=== PATIENT | male | born 1985 | race Caucasian/White ===

== ENCOUNTER 2018-03-28 13:32 | Emergency (ER) | payer MEDICAID, SELFPAY ==
[2018-03-28 13:34] VITALS: BP 135/76; PULSE 112; RESP 20; TEMP 37; O2SAT 100; BMI 20.3
--- NOTE | 2018-03-28 13:52 | NURSING ---
NO OLD EKGS
--- NOTE | 2018-03-28 14:05 | EKG12_ITS ---
Test Reason : Blood Pressure : / mmHG Vent. Rate : 089 BPM Atrial Rate : 089 BPM P-R Int : 128 ms QRS Dur : 082 ms QT Int : 368 ms P-R-T Axes : 077 060 057 degrees QTc Int : 447 ms Normal sinus rhythm Right atrial enlargement Borderline ECG Confirmed by DEVORA GRIMES, ALEKS ([id number]), editorial writer GIUSEPPE MENDEZ ([id number]) on 03/31/2018 9:50:22 AM Referred By: MEGAN Confirmed By:ALEKS LOZOYA MD
[2018-03-28] MEDS: 0.9% Normal Saline 1,000 ML 1000 ML IV (14:17)
[2018-03-28 14:29] LABS: Basophil# 0.03 X10^3/uL; Basophil% 0.3 % (0-1); Eosinophil# 0.01 X10^3/uL; Eosinophils% 0.1 % (0-5); Hematocrit 43.9 % (40-54); Lymphocyte % 7.5 % (19-41); Mean Corp Hgb Conc 34.2 g/gl (32-36); Mean Corpuscular Volume 96.5 fL (80-94); Mean Platelet Vol. 9.9 fl (6.2-12.0); Monocyte# 0.65 X10^3/uL; Monocyte% 6.9 % (0-10); Neutrophil # 7.97 X10^3/uL (2.7-7.7); Neutrophil % 85.2 % (47-70); Platelet Count 182 K/mm3 (150-450); RBC Distribution Width CV 11.8 % (11.6-14.6); RBC Distribution Width SD 41.5 fl (35.1-43.9); Red Blood Count 4.55 M/mm3 (4.6-6.2); White Blood Count 9.4 K/mm3 (4.4-11.0)
[2018-03-28 14:30] LABS: POSITIVE COUNT NO; POSITIVE DIFFERENTIAL NO; POSITIVE MORPHOLOGY NO
[2018-03-28 14:40] LABS: Anion Gap 6 (5-15); BUN 6 mg/dL (7-18); BUN/Creat Ratio 9.2 RATIO (10-20); Calcium,Total 9.5 mg/dL (8.5-10.1); Chloride 100 mmol/L (98-107); Creatinine, Serum 0.65 mg/dL (0.70-1.30); EST Glomerular Filtration Rate 148 mL/min (>60); Est Glom Filt Rate - Afr Amer 179 mL/min (>60); Estimated Creatinine Clearance 145.86 ml/min; Glucose 168 mg/dL (74-106); Potassium 3.7 mmol/L (3.5-5.1); Sodium Level 136 mmol/L (136-145)
--- NOTE | 2018-03-28 15:15 | ED.DCSUM_ITS ---
- ER Visit Summary Date of Service: 03/28/18 Chief Complaint: Feel weird and shaky History of Present Illness: The patient is a 32 M with no primary care physician. Reports that 8:00 this morning he woke up feeling shaky and has chest tightness. He states that this is a constant discomfort. 6 out of 10 severity. Son change with exertion or deep breaths. He denies any fever. No cough, abdominal pain, nausea, vomiting, diarrhea, dysuria, frequency, headache , or other complaints. Patient does report that he drinks daily. However, he states that he drinks 1- 2 beers per day. He states that he drank heavier over the weekend. He states that he had 5 beers yesterday. He has never had any symptoms of alcohol withdrawal. He does however report that he has a history of anxiety. Physical Examination: Vitals: Stable. Afebrile. General: Well-nourished and well-developed. Head: Normocephalic atraumatic. Neck: Supple, no lymphadenopathy. No JVD. Nontender. Cardiovascular: Regular rate and rhythm. No murmurs. Respiratory: No respiratory distress. Clear to auscultation bilaterally. Abdominal: Soft, nontender, nondistended, normal bowel sounds. No guarding, rebound, or peritoneal signs. Back: Nontender. Extremities: Nontender, no edema. Skin: Normal color, no rash. Neurologic: Alert and oriented ?3. Cranial nerves II through XII are intact. Normal strength and sensation. Psych: Normal affect. Test Results: EKG is sinus at [address] changes. CBC is more for segment neutrophils 85 monocytes of 8. Chem-7 is more for glucose 160, BUN 6, creatinine 0.65. Emergency Department Course and Treatment: Patient refused any medications for anxiety. He was given a liter of normal saline. He is resting comfortably and feels improved. Treatment Plan: I had a prolonged discussion with the patient that at this time I do not think that this is alcohol withdrawal given the amount that he drinks. Regardless he states that he does not want to stop drinking. He is not tachycardic or hypertensive. I feel that he is a suitable candidate for further outpatient evaluation. He will be discharged instructions to [facility] in 1-2 days if not improving. Return to the emergency department for any worsening symptoms. Disposition: To home in improved and stable condition. Impression: 1. Anxiety. This note was generated with [employer] dictation software. It may contain incorrect words, spelling, and punctuation that were not noted in review of the chart prior to signing ED Disposition - Plan for ED Patient: Disposition: Home or Assisted Living Chief Complaint: General Illness Instructions: ED Stress React Referrals: Christiana Shabazz [NON-STAFF] - 1-2 Days if not improving
[2018-03-28 15:23] VITALS: BP 125/75; PULSE 95; RESP 14; O2SAT 98
== END 2018-03-28 15:27 | disposition home or self-care (01) ==
PROVIDERS: Emergency Provider Emergency Medicine
DX: R41.9 Unspecified symptoms and signs involving cognitive functions and awareness (principal)
CPT/HCPCS: 80048; 85025; 93005; 99284; J7030

== ENCOUNTER 2021-03-09 08:37 | Emergency (ER) | payer MEDICAID, SELFPAY ==
[2021-03-09 08:38] VITALS: BP 145/110; PULSE 109; RESP 22; TEMP 36.1; O2SAT 98; BMI 20.2
--- NOTE | 2021-03-09 09:05 | EX.ED.DYSGE1 ---
HPI History of Present Illness Chief Complaint: Anxiety Informant: patient and parent Onset/Context/Timing Onset: Month(s) Context: Gradual Onset Timing: Continuous Quality: Anxious, shaky Location: Generalized Worsened by: Nothing Relieved by: Drinking alcohol Narrative Narrative: Patient presents with increasing anxiety over the past several months. Patient states he feels anxious and shaking all over. Patient states he has been drinking alcohol to self medicate. Patient states he drinks 10-20 beers per day. Patient states he has not seen a counselor or psychiatrist for his anxiety. Patient also noted some bruising over his arms and legs. Patient states this is getting worse. Patient denies any trauma or injuries to cause the bruising. [facility] Medical History Alcohol abuse Anxiety Depression Home Medications hydroxyzine pamoate 25 mg PO TID PRN PRN #3 capsule 03/09/21 [Rx Last Taken Unknown] Allergy/AdvReac Type Severity Reaction Status Date / Time No Known Allergies Allergy Verified 06/29/13 14:19 no surgical history Social History (Updated 03/09/21 @ 09:[address] Braulio Green DO) Smoking Status: Never smoker alcohol intake: current alcohol intake frequency: 3 or more drinks per day Alcohol type: beer ROS ROS ED Constitutional Constitutional ED: Denies chills or fever(s) Eyes Eyes: Reports blurry vision; Denies diplopia ENT ENT ED: Denies rhinorrhea or sore throat Cardiovascular Cardiovascular: Denies chest pain or palpitations Respiratory/Chest Respiratory/Chest: Denies cough or dyspnea Gastrointestinal Gastrointestinal: Reports nausea and vomiting Genitourinary Genitourinary ED: Denies dysuria or hematuria Musculoskeletal Musculoskeletal: Denies back pain or neck pain Integumentary Denies abscess or rash Neurologic Neurologic: Denies headache(s) or weakness Psychiatric Psychiatric: Reports anxiety and depression; Denies suicidal ideation or suicidal thoughts Hematologic/Lymphatic Hematologic/Lymphatic: Reports easy bruising Allergic/Immunologic Allergic/Immunologic ED: Denies mouth swelling or urticaria EXAM Physical Exam Const Vital Signs: 03/09/21 08:38 03/09/21 10:36 Temperature 97.0 F L Temperature Source Temporal Pulse Rate 109 H 96 Respiratory Rate 22 H 18 Blood Pressure 145/110 H 160/109 H Blood Pressure Mean 121 126 Pulse Ox 98 99 Oxygen Delivery Method Room Air Room Air Positive well nourished and well developed General Appearance ED: well developed HEENT Reports moist mucous membranes Neck supple and no JVD Resp normal respiratory effort and clear to auscultation bilaterally Cardio regular rate, regular rhythm and no murmurs GI normal to inspection, nondistended, normoactive bowel sounds and non-tender Palpation: soft Extremity normal to inspection General Extremety ED: Negative for edema or tenderness General Extremity: Negative for edema Neuro oriented x3, CN's II-XII intact bilaterally and no sensory deficits noted Sensorium / Orientation: alert Motor Exam: strength 5/5 throughout Psych mental status grossly normal, denies homicidal ideation and denies suicidal ideation Appearance: grossly normal Activity / Motor Behavior: appropriate eye contact Speech: normal speech Mood & Affect: anxious Skin no rashes or lesions noted MDM MDM MDM Narrative Medical decision making narrative: Patient was given a dose of Vistaril here. CBC shows a mild thrombocytopenia of 96. Comprehensive metabolic profile shows a mild hypokalemia 3.0. AST was 257, ALT was 133, and alk phos is 134. Serum alcohol level was 66. Urine tox screen was positive for cannabinoids. Patient is feeling somewhat better on reevaluation. Case will be discussed with crisis for outpatient referral for alcohol abuse and counseling for anxiety and depression. I do not feel the patient needs to be placed in a psychiatric facility. Patient does not want to be admitted for alcohol detox. Patient was instructed to follow-up with crisis tomorrow at 4 PM. Patient understood and was agreeable with the plan. Patient was given a prescription for Vistaril. Patient was instructed to avoid drinking alcohol. Lab Data Attestation: I reviewed the patient's lab results. Labs: Laboratory Results - last 24 hr 03/09/21 03/09/21 03/09/21 09:05 09:05 09:05 WBC 6.7 RBC 4.22 L Hgb 14.4 Hct 41.1 MCV 97.4 H MCH 34.1 H MCHC 35.0 RDW Std Deviation 43.6 RDW Coeff of [place]ira 12.1 Plt Count 96 L MPV 10.8 Immature Gran % (Auto) 0.100 Neut % (Auto) 69.9 Lymph % (Auto) 15.9 L [place] % (Auto) 11.9 H Eos % (Auto) 1.0 Baso % (Auto) 1.2 H Absolute Neuts (auto) 4.7 Absolute Lymphs (auto) 1.07 Nucleated RBC % 0 Platelet Estimate MOD DEC Sodium 134 L Potassium 3.0 L Chloride 96 L Carbon Dioxide 25.0 Anion Gap 13 BUN 3 L Creatinine 0.59 L Estim Creat Clear Calc 155.73 Est GFR (MDRD) Af Amer 198 Est GFR (MDRD) Non-Af 164 BUN/Creatinine Ratio 5.1 L Glucose 114 H Calcium 8.8 Total Bilirubin 0.80 AST 257 H ALT 133 H Alkaline Phosphatase 134 H Total Protein 7.3 Albumin 3.8 Globulin 3.5 Albumin/Globulin Ratio 1.1 Urine Opiates Screen Urine Methadone Screen Ur Barbiturates Screen Ur Phencyclidine Scrn Ur Amphetamines Screen U Methamphetamin-MDMA U Benzodiazepines Scrn Urine Cocaine Screen U Cannabinoids Screen Ur Drug Screen Comment Ethyl Alcohol 66.0 03/09/21 09:20 WBC RBC Hgb Hct MCV MCH MCHC RDW Std Deviation RDW Coeff of [place] Plt Count MPV Immature Gran % (Auto) Neut % (Auto) Lymph % (Auto) [place] % (Auto) Eos % (Auto) Baso % (Auto) Absolute Neuts (auto) Absolute Lymphs (auto) Nucleated RBC % Platelet Estimate Sodium Potassium Chloride Carbon Dioxide Anion Gap BUN Creatinine Estim Creat Clear Calc Est GFR (MDRD) Af Amer Est GFR (MDRD) Non-Af BUN/Creatinine Ratio Glucose Calcium Total Bilirubin AST ALT Alkaline Phosphatase Total Protein Albumin Globulin Albumin/Globulin Ratio Urine Opiates Screen NEGATIVE Urine Methadone Screen NEGATIVE Ur Barbiturates Screen NEGATIVE Ur Phencyclidine Scrn NEGATIVE Ur Amphetamines Screen NEGATIVE U Methamphetamin-MDMA NEGATIVE U Benzodiazepines Scrn NEGATIVE Urine Cocaine Screen NEGATIVE U Cannabinoids Screen POSITIVE H Ur Drug Screen Comment Ethyl Alcohol Discharge Plan Triage Chief Complaint: Anxiety ED Provider: Braulio Green Dx/Rx/DC Orders Clinical Impression: Anxiety, Alcohol abuse Instructions: ED Anxiety Reaction, ED Depression, ED Alcohol Abuse Prescriptions: New hydroxyzine pamoate [hydroxyzine pamoate] 25 MG capsule 25 mg PO TID PRN PRN (Reason: Anxiety) Qty: 3 RF: 0 Primary Care Provider: Care Physician,No Primary Referrals: Counseling,Center [GROUP OF PHYSICIANS] - 1 Day (Follow-up tomorrow at 4 PM) Care Physician,No Primary [Primary Care Provider] - Activity Restrictions/Additional Instructions: Follow-up with crisis counseling center tomorrow at 4 PM Disposition Disposition: Home, Self Care
[2021-03-09] MEDS: hydrOXYzine PAM 25 MG Capsule PO (09:22)
[2021-03-09 09:28] LABS: Absolute Lymphocyte Count 1.07 X10^3/uL (0.83-4.51); Absolute Neutrophil Count 4.7 X10^3/uL (2.0-7.7); Basophil# 0.08 X10^3/uL; Basophil% 1.2 % (0-1); Eosinophil# 0.07 X10^3/uL; Hematocrit 41.1 % (40-54); Hemoglobin 14.4 g/dL (13.0-16.5); Lymphocyte # 1.07 X10^3/ul (0.83-4.51); Lymphocyte % 15.9 % (19-41); Mean Corpuscular Hgb 34.1 pg (27.0-32.0); Mean Corpuscular Volume 97.4 fL (80-94); Mean Platelet Vol. 10.8 fl (6.2-12.0); Monocyte% 11.9 % (0-10); NRBC Flagged by Analyzer 0 % (0-5); Neutrophil # 4.68 X10^3/uL (2.7-7.7); Neutrophil % 69.9 % (47-70); POSITIVE COUNT YES; Platelet Count 96 K/mm3 (150-450); RBC Distribution Width CV 12.1 % (11.6-14.6); RBC Distribution Width SD 43.6 fl (35.1-43.9); Red Blood Count 4.22 M/mm3 (4.6-6.2); White Blood Count 6.7 K/mm3 (4.4-11.0)
[2021-03-09 09:29] LABS: Differential Indicated SCAN CRITERIA MET
[2021-03-09 09:43] LABS: ALB/GLOB Ratio 1.1 RATIO (0.9-2.4); AST(SGOT) 257 U/L (15-37); Alanine Aminotransfer ALT/SGPT 133 U/L (16-61); Albumin, Serum 3.8 g/dL (3.2-5.0); Alkaline Phosphatase 134 U/L (45-117); Anion Gap 13 (5-15); BUN 3 mg/dL (7-18); BUN/Creat Ratio 5.1 RATIO (10-20); Calcium,Total 8.8 mg/dL (8.5-10.1); Chloride 96 mmol/L (98-107); Creatinine, Serum 0.59 mg/dL (0.70-1.30); EST Glomerular Filtration Rate 164 mL/min (>60); Est Glom Filt Rate - Afr Amer 198 mL/min (>60); Estimated Creatinine Clearance 155.73 ml/min; Globulin 3.5 g/dL (2.2-4.2); Glucose 114 mg/dL (74-106); Protein, Total 7.3 g/dL (6.4-8.2); Sodium Level 134 mmol/L (136-145)
[2021-03-09 09:52] LABS: Amphetamine Urine VISTA NEGATIVE (<1000 ng/mL); Barbiturate Urine VISTA NEGATIVE (< 200 ng/mL); Benzodiazepine Urine VISTA NEGATIVE (< 200 ng/mL); Cocaine Urine VISTA NEGATIVE (< 300 ng/mL); Ecstacy Urine VISTA NEGATIVE (< 500 ng/mL); Methadone Urine VISTA NEGATIVE (< 300 ng/mL); PCP Urine VISTA NEGATIVE (< 25 ng/mL); THC Urine VISTA POSITIVE (< 50 ng/mL); Vista UDS pH Range 6
[2021-03-09 09:57] LABS: Platelet Estimate MOD DEC (ADEQ)
[2021-03-09] MEDS: Potassium Chloride Oral Tablet 20 MEQ 40 MEQ PO (10:33)
[2021-03-09 10:36] VITALS: BP 160/109; PULSE 96; RESP 18; O2SAT 99
[2021-03-09 11:02] VITALS: BP 174/77; PULSE 96; RESP 16; O2SAT 99
== END 2021-03-09 11:03 | disposition home or self-care (01) ==
PROVIDERS: Emergency Provider Emergency Medicine
DX: F41.9 Anxiety disorder, unspecified (principal); F10.10 Alcohol abuse, uncomplicated; Y90.3 Blood alcohol level of 60-79 mg/100 ml
CPT/HCPCS: 80053; 80307; 82077; 85025; 99284; A4216

== ENCOUNTER → 2021-04-08 16:33 | Outpatient (CLI) | payer MEDICAID, SELFPAY ==
[2021-03-09 08:38] VITALS: BMI 20.2
[2021-04-08 17:06] LABS: Absolute Lymphocyte Count 0.69 X10^3/uL (0.83-4.51); Basophil# 0.04 X10^3/uL; Basophil% 0.3 % (0-1); Eosinophil# 0.04 X10^3/uL; Eosinophils% 0.3 % (0-5); Hematocrit 41.3 % (40-54); Hemoglobin 14.4 g/dL (13.0-16.5); Lymphocyte # 0.69 X10^3/ul (0.83-4.51); Lymphocyte % 5.3 % (19-41); Mean Corp Hgb Conc 34.9 g/dL (32-36); Mean Corpuscular Hgb 34.5 pg (27.0-32.0); Mean Platelet Vol. 11.5 fl (6.2-12.0); Monocyte# 1.25 X10^3/uL; Monocyte% 9.5 % (0-10); NRBC Flagged by Analyzer 0 % (0-5); Neutrophil # 11.02 X10^3/uL (2.7-7.7); POSITIVE COUNT YES; Platelet Count 102 K/mm3 (150-450); RBC Distribution Width CV 11.7 % (11.6-14.6); RBC Distribution Width SD 42.6 fl (35.1-43.9); Red Blood Count 4.17 M/mm3 (4.6-6.2); White Blood Count 13.1 K/mm3 (4.4-11.0)
[2021-04-08 17:11] LABS: Differential Indicated SCAN CRITERIA MET
[2021-04-08 17:47] LABS: Anisocytosis RARE; Macrocytosis RARE; Platelet Estimate SLT DEC (ADEQ); Platelet Morphology LARGE; Red Cell Morphology N CHROM NORMAL (NORM C&C)
[2021-04-08 18:06] LABS: AST(SGOT) 116 U/L (15-37); Alanine Aminotransfer ALT/SGPT 77 U/L (16-61); Albumin, Serum 4.2 g/dL (3.2-5.0); Alkaline Phosphatase 123 U/L (45-117); Anion Gap 11 (5-15); BUN 6 mg/dL (7-18); BUN/Creat Ratio 6.9 RATIO (10-20); Calcium,Total 9.7 mg/dL (8.5-10.1); Chloride 92 mmol/L (98-107); Creatinine, Serum 0.88 mg/dL (0.70-1.30); EST Glomerular Filtration Rate 104 mL/min (>60); Est Glom Filt Rate - Afr Amer 126 mL/min (>60); Glucose 129 mg/dL (74-106); Potassium 3.7 mmol/L (3.5-5.1); Protein, Total 8.2 g/dL (6.4-8.2); Sodium Level 127 mmol/L (136-145)
== END ==
LOC: LAB.FUTURE 16:38 → LAB 16:39
DX: F41.8 Other specified anxiety disorders (principal); F10.10 Alcohol abuse, uncomplicated; F51.04 Psychophysiologic insomnia
CPT/HCPCS: 36415; 80053; 85025

== ENCOUNTER → 2021-05-02 14:57 | Outpatient (CLI) | payer MEDICAID, SELFPAY ==
[2021-05-02 16:49] LABS: ALB/GLOB Ratio 1.1 RATIO (0.9-2.4); AST(SGOT) 57 U/L (15-37); Alanine Aminotransfer ALT/SGPT 75 U/L (16-61); Albumin, Serum 3.9 g/dL (3.2-5.0); Alkaline Phosphatase 98 U/L (45-117); Anion Gap 7 (5-15); BUN 10 mg/dL (7-18); BUN/Creat Ratio 20.6 RATIO (10-20); Calcium,Total 8.9 mg/dL (8.5-10.1); Chloride 99 mmol/L (98-107); Creatinine, Serum 0.49 mg/dL (0.70-1.30); EST Glomerular Filtration Rate 205 mL/min (>60); Est Glom Filt Rate - Afr Amer 248 mL/min (>60); Globulin 3.4 g/dL (2.2-4.2); Glucose 87 mg/dL (74-106); Potassium 3.3 mmol/L (3.5-5.1); Protein, Total 7.3 g/dL (6.4-8.2); Sodium Level 134 mmol/L (136-145)
== END ==
PROVIDERS: Visit Provider Family Medicine
DX: F10.10 Alcohol abuse, uncomplicated (principal)
CPT/HCPCS: 36415; 80053

== ENCOUNTER → 2021-06-20 14:11 | Outpatient (CLI) | payer MEDICAID, SELFPAY ==
[2021-06-20 16:03] LABS: Potassium 4.1 mmol/L (3.5-5.1)
== END ==
PROVIDERS: Referring Provider Nurse Practitioner Adult Health; Visit Provider Nurse Practitioner Adult Health
DX: E87.6 Hypokalemia (principal)
CPT/HCPCS: 36415; 84132

== ENCOUNTER 2021-10-20 14:03 | Outpatient (CLI) | payer MEDICAID, SELFPAY ==
[2021-10-20 15:40] LABS: AST(SGOT) 90 U/L (15-37); Alanine Aminotransfer ALT/SGPT 62 U/L (16-61); Albumin, Serum 4.1 g/dL (3.2-5.0); Alkaline Phosphatase 170 U/L (45-117); Bilirubin, Direct 0.51 mg/dL (0.00-0.30); Protein, Total 8.1 g/dL (6.4-8.2); T4 Free Direct 0.82 ng/dL (0.76-1.46); Thyroid Stim Hormone (TSH) 4.69 uIU/mL (0.358-3.74)
== END 2021-10-20 23:59 | disposition home or self-care (01) ==
LOC: LAB 14:04
PROVIDERS: Visit Provider Nurse Practitioner Adult Health
DX: F41.9 Anxiety disorder, unspecified (principal); R94.5 Abnormal results of liver function studies; F51.04 Psychophysiologic insomnia
CPT/HCPCS: 36415; 80076; 84439; 84443

== ENCOUNTER 2021-11-06 07:49 | Outpatient (CLI) | payer MEDICAID, SELFPAY ==
--- NOTE | 2021-11-06 07:51 | US_ITS ---
STUDY: ABDOMINAL ULTRASOUND REASON FOR EXAM: Male, 36 years old. ALCOHOL ABUSE TECHNIQUE: Transabdominal ultrasound was performed with real-time and static ocbb scale imaging. TECHNICAL QUALITY: Adequate. COMPARISON: None. FINDINGS: Liver: The liver is enlarged and measures 18.4 cm. There is increased echogenicity consistent with fatty infiltration. The bile ducts are within normal limits. There is hepatic color flow. The direction of portal flow is hepatopetal. There is no demonstrated mass lesion. Gallbladder: Normal distended gallbladder. The gallbladder wall measures 3.7 mm. There is a negative sonographic Schmidt''s sign. There is no pericholecystic fluid. There are multiple echogenic structures within the gallbladder, consistent with multiple small gallstones. Common Bile Duct (C.B.D.): The common bile duct measures 3.7 mm. Pancreas: Normal size of the head, body and tail of the pancreas. There is normal echogenicity of the pancreas. There is no demonstrated pancreatic mass or cyst. Spleen: Normal size of the spleen. The spleen measures 8.2 cm x 3.7 cm x 3.3 cm. Right Kidney: Normal size of the right kidney. The right kidney measures 11 cm x 6.1 cm x 4 cm. Normal renal cortex. The right cortex measures 1.5 cm. There is no demonstrated renal mass or cyst. There is no right hydronephrosis. Left Kidney: Normal size of the left kidney. The left kidney measures 9.2 cm x 4.9 cm x 5.3 cm. Normal renal cortex. The left cortex measures 1.6 cm. There is no demonstrated renal mass or cyst. There is no left hydronephrosis. Aorta: Unremarkable I.V.C.: The IVC is patent. There is no ascites. US/Abdomen Complete IMPRESSION: Mild hepatomegaly and fatty infiltration of the liver. Multiple small gallstones. Electronically Signed: Dharmesh Alaniz MD at 15:40 EST ,
[2021-11-07 13:42] LABS: Thyroid Peroxidase AB 19 IU/mL (0-34)
== END 2021-11-06 23:59 | disposition home or self-care (01) ==
PROVIDERS: Referring Provider Nurse Practitioner Adult Health; Visit Provider Nurse Practitioner Adult Health
DX: E03.9 Hypothyroidism, unspecified (principal); F10.10 Alcohol abuse, uncomplicated
CPT/HCPCS: 36415; 76700; 86376

== ENCOUNTER 2021-12-10 10:56 | Outpatient (CLI) | payer MEDICAID, SELFPAY ==
[2021-12-10 14:08] LABS: Hepatitis B Surface Antigen Non-Reactive (Nonreactive)
[2021-12-12 18:07] LABS: Hepatitis B Core Ab Total Negative (Negative)
[2021-12-12 21:12] LABS: Hepatitis A AB, Total Negative (Negative)
== END 2021-12-10 23:59 | disposition home or self-care (01) ==
LOC: LAB 10:57
PROVIDERS: Referring Provider Nurse Practitioner Adult Health; Visit Provider Nurse Practitioner Adult Health
DX: R94.5 Abnormal results of liver function studies (principal)
CPT/HCPCS: 36415; 86704; 86708; 87340; 87521

== ENCOUNTER 2021-12-15 11:23 | Outpatient (CLI) | payer MEDICAID, SELFPAY ==
[2021-12-15 12:22] LABS: Prothrombin Time (Protime)PT. 13.3 SECONDS (11.7-14.9)
[2021-12-15 12:31] LABS: Erythrocyte Sedimentation Rate 3 mm/hr (0-20)
[2021-12-15 12:33] LABS: Absolute Lymphocyte Count 1.42 X10^3/uL (0.83-4.51); Absolute Neutrophil Count 6.9 X10^3/uL (2.0-7.7); Basophil# 0.06 X10^3/uL; Basophil% 0.6 % (0-1); Eosinophil# 0.08 X10^3/uL; Eosinophils% 0.8 % (0-5); Hematocrit 40.6 % (40-54); Hemoglobin 13.7 g/dL (13.0-16.5); Lymphocyte # 1.42 X10^3/ul (0.83-4.51); Lymphocyte % 14.7 % (19-41); Mean Corp Hgb Conc 33.7 g/dL (32-36); Mean Corpuscular Hgb 33.7 pg (27.0-32.0); Mean Corpuscular Volume 99.8 fL (80-94); Mean Platelet Vol. 10.2 fl (6.2-12.0); Monocyte% 12.4 % (0-10); NRBC Flagged by Analyzer 0 % (0-5); Neutrophil # 6.85 X10^3/uL (2.7-7.7); Neutrophil % 71.1 % (47-70); Platelet Count 225 K/mm3 (150-450); RBC Distribution Width CV 11.7 % (11.6-14.6); RBC Distribution Width SD 42.4 fl (35.1-43.9); Red Blood Count 4.07 M/mm3 (4.6-6.2); White Blood Count 9.7 K/mm3 (4.4-11.0)
[2021-12-15 13:15] LABS: ALB/GLOB Ratio 1.1 RATIO (0.9-2.4); AST(SGOT) 87 U/L (15-37); Alanine Aminotransfer ALT/SGPT 70 U/L (16-61); Albumin, Serum 4.1 g/dL (3.2-5.0); Alkaline Phosphatase 149 U/L (45-117); Anion Gap 9 (5-15); BUN 8 mg/dL (7-18); BUN/Creat Ratio 12.7 RATIO (10-20); Bilirubin, Direct 0.26 mg/dL (0.00-0.30); CRP < 2.90 mg/L (0.0-3.0); Calcium,Total 9.1 mg/dL (8.5-10.1); Chloride 102 mmol/L (98-107); Creatinine, Serum 0.63 mg/dL (0.70-1.30); EST Glomerular Filtration Rate 152 mL/min (>60); Est Glom Filt Rate - Afr Amer 184 mL/min (>60); Ferritin 252 ng/mL (26-388); Globulin 3.8 g/dL (2.2-4.2); Glucose 97 mg/dL (74-106); LDH 188 U/L (87-241); Potassium 3.6 mmol/L (3.5-5.1); Protein, Total 7.9 g/dL (6.4-8.2); Sodium Level 134 mmol/L (136-145)
[2021-12-15 13:42] LABS: HIV - WCH Non-Reactive (Nonreactive)
[2021-12-16 15:08] LABS: Anti-Centromere B Ab <0.2 AI (0.0-0.9); Anti-Chromatin <0.2 AI (0.0-0.9); Anti-Jo <0.2 AI (0.0-0.9); Anti-Scleroderma-70 AB <0.2 AI (0.0-0.9); RNP Ab <0.2 AI (0.0-0.9); SJOGREN'S Anti-SS-A test < 0.2 AI (0.0-0.9); SJOGREN'S Anti-SS-B test < 0.2 AI (0.0-0.9); Smith Ab <0.2 AI (0.0-0.9)
[2021-12-16 17:40] LABS: Anti-Mitochondrial AB <20.0 Units (0.0-20.0); Anti-dsDNA Ab <1 IU/mL (0-9)
[2021-12-24 04:07] LABS: Angiotensin Convert Enzyme 64 U/L (14-82); Ceruloplasmin 20.3 mg/dL (16.0-31.0); Cytoplasmic Ab (C-ANCA) <1:20 titer (Neg:<1:20); Immunoglobulin A 482 mg/dL (90-386); Immunoglobulin E 2464 IU/mL (6-495); Immunoglobulin G 769 mg/dL (603-1613); Immunoglobulin M 49 mg/dL (20-172)
[2021-12-24 10:44] LABS: Anti-Smooth Muscle ABS 4 Units (0-19); Copper, Serum or Plasma 83 ug/dL (69-132); Perinuclear Ab (P-ANCA) <1:20 titer (Neg:<1:20)
== END 2021-12-15 23:59 | disposition home or self-care (01) ==
LOC: LAB 11:24
PROVIDERS: Referring Provider Nurse Practitioner Adult Health; Visit Provider Nurse Practitioner Adult Health
DX: F10.10 Alcohol abuse, uncomplicated (principal); K76.0 Fatty (change of) liver, not elsewhere classified
CPT/HCPCS: 36415; 80053; 82140; 82164; 82248; 82390; 82525; 82728; 82784; 82785; 83036; 83516; 83615; 85025; 85610; 85652; 86140; 86225; 86235; 86256; 86703

== ENCOUNTER → 2021-12-26 | Outpatient (CLI) | payer MEDICAID, SELFPAY ==
--- NOTE | 2021-12-26 07:24 | US_ITS ---
STUDY: ABDOMINAL ULTRASOUND - ELASTOGRAPHY REASON FOR VISIT: Male, 36 years old. Fatty infiltration of the liver. TECHNIQUE: Liver stiffness measurements were obtained on a Fingerprint RS 85 ultrasound machine using a CA 1-7 probe following the SRU guidelines. 3 measurements were obtained using a 2-D-SWE method. The IQR/M was 16% suggesting a quality data set. TECHNICAL QUALITY: Adequate. COMPARISON: Comparison is made with prior examination dated 11/06/2021 FINDINGS: Liver: Fatty infiltration of the liver. Median liver stiffness measured 12.5 kPa. US/Elastography Parenchyma/Organ IMPRESSION: Liver stiffness measures 12.5 kPa compatible with F3-F4 (Moderate to severe liver fibrosis) Metavir score. Electronically Signed: Dharmesh Alaniz MD at 10:01 EDT ,
== END | disposition home or self-care (01) ==
LOC: US 07:23
PROVIDERS: Referring Provider Nurse Practitioner Adult Health; Visit Provider Nurse Practitioner Adult Health
DX: K76.0 Fatty (change of) liver, not elsewhere classified (principal)
CPT/HCPCS: 76981

== ENCOUNTER 2022-10-25 18:00 | Emergency (ER) | payer MEDICAID, SELFPAY ==
[2022-10-25 18:00] VITALS: BP 127/95; PULSE 92; RESP 14; TEMP 36.8; O2SAT 97; BMI 19.8
--- NOTE | 2022-10-25 18:58 | EDS_ITS ---
HPI <AURELIANO Santiago - Last Filed: 10/25/22 19:03> History of Present Illness Chief Complaint: Laceration Narrative Narrative: 37-year-old male with history of insomnia presents the emergency department with a laceration to the left eyebrow. Patient states he was walking, struck his face against a corner of a wall after losing his balance. Patient felt blood and he called his parents to bring him here. Patient did have 3-4 alcoholic drinks did not want to drive. He denies any LOC. He is currently on any blood thinners. He is acting appropriate per his parents. Denies any other injury [facility] <AURELIANO Santiago - Last Filed: 10/25/22 19:03> [facility] Medical History (Updated 10/25/22 @ 19:03 by AURELIANO Santiago) Alcohol abuse Alcoholic fatty liver Anxiety Calculus of gallbladder Cholelithiasis Depression Elevated liver enzymes Fatty liver Fatty liver Hyperthyroidism Home Medications NK 12/19/21 [History Last Taken Unknown] Allergy/AdvReac Type Severity Reaction Status Date / Time trazodone Allergy Intermediate UNK Verified 10/25/22 18:01 Family History Father Thyroid disorder Social History Smoking Status: Never smoker alcohol intake: current alcohol intake frequency: 3 or more drinks per day Alcohol type: beer ROS <AURELIANO Santiago - Last Filed: 10/25/22 19:03> ROS ED ROS Narrative Constitutional: Negative for fever, chills, weight loss, weakness Eyes: Negative for vision loss, vision change, double vision ENT: Negative for any sore throat, ear pain, congestion Cardiovascular: Negative for any chest pain, tightness, palpitations Respiratory: Negative for any cough, sputum production, hemoptysis, dyspnea, dyspnea on exertion, orthopnea Gastrointestinal: Negative for any abdominal pain, nausea, vomiting, diarrhea, constipation, blood in stool, blood in vomit : Negative for any urinary frequency, dysuria, retention, blood in urine Muscle skeletal: Negative for any muscle joint pain, stiffness, myalgias, arthralgias, neck pain, back pain Neurological: Negative for any headache, syncope, numbness or tingling, dizziness Skin: Negative for any rashes, lumps, itching, abrasions. Positive laceration to the left eyebrow Psychiatric: Negative for any depression, anxiety, stress, suicidal ideation, homicidal ideation Hematologic: Negative for any easy bruising, excessive bruising, easy bleeding Allergies: Negative for any eczema, hives, rash EXAM <Rigoberto ClarenceAURELIANO ho - Last Filed: 10/25/22 19:03> Physical Exam Narrative Exam Narrative: Vital signs reviewed. Patient alert on x4 acting appropriate. HEET: Head normocephalic atraumatic, TMs clear bilaterally. Posterior pharynx is clear, moist mucous membranes. Nares clear bilaterally. Pupils are equal round reactive to light. Negative for any hemotympanum, septal hematoma. Neck: Supple with no lymphadenopathy or tenderness. No signs of meningismus, negative jolt sign. Cardiac: Regular rate and rhythm no murmurs gallops or rubs, equal peripheral pulses bilaterally. Respiratory: Lungs clear to auscultation bilaterally. No chest tenderness. Abdomen: Soft, nontender, nondistended. No abdominal bruit or pulsatile masses. No hepatosplenomegaly Extremities: No peripheral edema, no signs of gross trauma or deformity. Active full range of motion of all extremities. Neuro: Cranial nerves II through XII intact, no focal neurological deficits. Skin: Clean dry and intact with no rash, purpura, petechiae, vesicles or pustules. Patient has a 1.5 cm laceration is vertical just above his left eyebrow. Backs/flank: No CVA tenderness, no midline spinal tenderness, no deformity. Psych: Normal mood and affect. No SI, HI or acute psychosis. Const Vital Signs: 10/25/22 18:00 10/25/22 19:17 Temperature 98.3 F Temperature Source Temporal Pulse Rate 92 68 Respiratory Rate 14 15 Blood Pressure 127/95 H 125/76 H Blood Pressure Mean 105 Pulse Ox 97 98 Oxygen Delivery Method Room Air <Dr. Lito Daily DO - Last Filed: 10/25/22 22:20> Physical Exam Const Vital Signs: 10/25/22 18:00 10/25/22 19:17 Temperature 98.3 F Temperature Source Temporal Pulse Rate 92 68 Respiratory Rate 14 15 Blood Pressure 127/95 H 125/76 H Blood Pressure Mean 105 Pulse Ox 97 98 Oxygen Delivery Method Room Air MDM <AURELIANO Santiago - Last Filed: 10/25/22 19:03> [facility] Treatment and Re-Evaluation Narrative: Patient appears well, patient appears nontoxic, vital signs are stable. Patient presents to the emergency department with complaints of a laceration to the left eyebrow after running into a wall. Patient did have 3-4 alcoholic drinks. Patient is acting appropriate. He is with his parents who states that he is acting appropriate. Consider a CT scan of the brain secondary to the alcohol use. I spoke with the patient, the patient's parents, we shared decision making, there is no indication at this time. I did offer to the patient however he declined, patient is alert and oriented acting appropriate. I was able to place 4 simple sutures to the 1.5 cm vertical laceration above the left eyebrow. I used 5-0 Ethilon. Patient tolerated well. Patient was up-to-date on his tetanus vaccination. Patient stable for discharge <Dr. Lito Daily DO - Last Filed: 10/25/22 22:20> [facility] Narrative Medical decision making narrative: interventions / MDM: Differential diagnosis: Facial laceration, head injury, alcohol use Diagnosis considered but do not suspect: N/A My EKG interpretation: N/A Imaging independently reviewed and interpreted by myself: N/A External documents reviewed: N/A Test considered but not ordered:N/A ED course: Attending note: Patient seen and evaluated with od grinder operator. I perform my own [id number] evaluation. I agree with the plan of work-up. Alcohol today walked into the corner of a wall. Laceration forehead. Tetanus unknown. No other injuries. Exam 1.5 cm vertical laceration above the left brow. Clinically sober. No focal deficits. Parents are present patient declines CT scan. Parents will monitor. Last repaired by od grinder operator. Tetanus updated. Discussed wound care and sutures removed in 5 days. He is followed by [facility]. Return precautions. Re-evaluation: stable Disposition discussed with patient/family/significant other: Patient and parents Case discussed with consulting clinician: N/A. Lab Data Attestation: I reviewed the patient's lab results. Procedures <AURELIANO Santiago - Last Filed: 10/25/22 19:03> Lacerations 1.5 cm vertical laceration: Length: 0.59 in Depth: Skin Shape: Linear Prep: Sterile Conditions Laceration repair: Lidocaine Irrigated (ml): 100 Number of Sutures/Julio: 4 Suture Information: Ethilon Comment: Sterile gloves, sterile drapes were used. Discharge Plan Triage Chief Complaint: Laceration ED Midlevel Provider: Rigoberto May ED Provider: Lito Daily Dx/Rx/DC Orders Clinical Impression: Head injury, Face lacerations Instructions: ED Head Injury (Adult), ED Laceration Minimize Scars Prescriptions: No Action NK [facility] - Activity Restrictions/Additional Instructions: Sutures need to be removed in 5 to 7 days. Disposition Disposition: Home, Self Care Discharge Date/Time: 10/25/22 19:19
[2022-10-25 19:17] VITALS: BP 125/76; PULSE 68; RESP 15; O2SAT 98
== END 2022-10-25 19:19 | disposition home or self-care (01) ==
PROVIDERS: Emergency Provider Emergency Medicine; Referring Provider Emergency Medicine; Visit Provider Emergency Medicine
DX: S01.112A Laceration without foreign body of left eyelid and periocular area, initial encounter (principal); W22.01XA Walked into wall, initial encounter
CPT/HCPCS: 12011; 99282